=== PATIENT | male | born 1990 | race Caucasian/White ===

== ENCOUNTER 2016-11-20 17:33 | Emergency (ER) | payer MEDICAID, OTHER ==
[~2016-11-20] VITALS: Ht 185.4 cm; Wt 91.4 kg
[2016-11-20] MEDS ORDERED: ACETAMINOPHEN 500 MG TABLET ONE (17:59)
[2016-11-20] MEDS ORDERED: LIDOCAINE 1%, 20ML ONE (17:59)
[2016-11-20] MEDS ORDERED: SODIUM CHLORIDE 0.9% 1,000ML IVBOLUS ONE (18:00)
[2016-11-20] MEDS ORDERED: SODIUM CHLORIDE FLUSH 10ML SYR IVF ONE (18:00)
[2016-11-20] MEDS ORDERED: LIDOCAINE 1%, 20ML SQ ONE (18:00)
[2016-11-20] MEDS ORDERED: ACETAMINOPHEN 500 MG TABLET PO ONE (18:00)
[2016-11-20] MEDS ORDERED: MORPHINE SULFATE 4 MG/ML, 1ML ONE (18:20)
[2016-11-20] MEDS ORDERED: ONDANSETRON 2MG/ML, 2ML ONE (18:20)
[2016-11-20] MEDS ORDERED: ONDANSETRON 2MG/ML, 2ML IVPush ONE (18:30)
[2016-11-20] MEDS ORDERED: MORPHINE SULFATE 4 MG/ML, 1ML IVPush PRN (18:30)
[2016-11-20 18:34] LABS: BLOOD UREA NITROGEN 12 mg/dL (7-18)
[2016-11-20 19:41] LABS: RAPID INFLUENZA A Negative (Negative); RAPID INFLUENZA B Negative (Negative)
[2016-11-20 22:14] VITALS: BP 109/54
== END 2016-11-20 22:16 | disposition home or self-care (01) ==
LOC: ED 19:35
DX: L02.413 Cutaneous abscess of right upper limb (principal); R50.9 Fever, unspecified
CPT/HCPCS: 10060; 36415; 71010; 76882; 80048; 81003; 82040; 83605; 84145; 85025; 87040; 87400; 93005; 96361; 96374; 96375; 99285; J2405; J7030

== ENCOUNTER 2016-11-23 04:40 | Emergency (ER) | payer MEDICAID ==
[~2016-11-23] VITALS: Ht 185.4 cm; Wt 88.6 kg
[2016-11-23] MEDS ORDERED: SODIUM CHLORIDE FLUSH 10ML SYR IVF ONE (05:30)
[2016-11-23] MEDS ORDERED: ONDANSETRON 2MG/ML, 2ML IVPush ONE (05:30)
[2016-11-23] MEDS ORDERED: SODIUM CHLORIDE 0.9% 1,000ML IVBOLUS ONE (05:30)
[2016-11-23] MEDS ORDERED: SULF1TAB3 PO (05:58)
[2016-11-23] MEDS ORDERED: ONDANSETRON 2MG/ML, 2ML ONE (06:01)
[2016-11-23] MEDS ORDERED: MORPHINE SULFATE 4 MG/ML, 1ML ONE ×2 (06:01→08:00)
[2016-11-23 06:17] LABS: ASPARTATE AMINO TRANSFERASE 231 U/L (15-37); BLOOD UREA NITROGEN 29 mg/dL (7-18)
[2016-11-23] MEDS: MORPHINE SULFATE 4 MG/ML, 1ML IVPush PRN ×2 (06:20→08:04)
[2016-11-23] MEDS ORDERED: SODIUM CHLORIDE 0.9%, 500ML IVBOLUS ONE (06:30)
[2016-11-23] MEDS ORDERED: HYDROmorphone 1 MG/ML, 1ML IV ONE (08:00)
[2016-11-23] MEDS ORDERED: HYDROmorphone 1 MG/ML, 1ML ONE (08:30)
[2016-11-23] MEDS ORDERED: OMNIPAQUE 350 MG/ML, 100ML BOTTLE ONE (08:31)
[2016-11-23 11:20] VITALS: BP 124/72
== END 2016-11-23 11:23 | disposition home or self-care (01) ==
LOC: ED 06:31
DX: R10.13 Epigastric pain (principal); R11.2 Nausea with vomiting, unspecified; L02.413 Cutaneous abscess of right upper limb; F17.200 Nicotine dependence, unspecified, uncomplicated
CPT/HCPCS: 36415; 74177; 76700; 80053; 80307; 81001; 83605; 83690; 85025; 87086; 96361; 96374; 96375; 96376; 99285; J1170; J2405; J7030; J7040; Q9967

== ENCOUNTER 2016-11-23 23:17 | Emergency (ER) | payer MEDICAID ==
[~2016-11-23] VITALS: Ht 185.4 cm; Wt 88.2 kg
[~2016-11-23 23:17] MED LIST: SULF1TAB3 PO
[2016-11-23] MEDS ORDERED: METOCLOPRAMIDE 5 MG/ML, 2ML ONE (23:55)
[2016-11-23] MEDS ORDERED: PROMETHAZINE 25 MG/ML, 1ML ONE (23:57)
[2016-11-24] MEDS ORDERED: PROMETHAZINE 25 MG/ML, 1ML IM ONE
[2016-11-24] MEDS ORDERED: SODIUM CHLORIDE FLUSH 10ML SYR IVF ONE
[2016-11-24] MEDS ORDERED: SODIUM CHLORIDE 0.9% 1,000ML IVBOLUS ONE
[2016-11-24 00:47] LABS: ASPARTATE AMINO TRANSFERASE 375 U/L (15-37); BLOOD UREA NITROGEN 16 mg/dL (7-18)
[2016-11-24 03:34] LABS: HIV 1&2 ANTIBODY SCREEN Nonreactive (Nonreactive); HIV-1 p24 ANTIGEN Nonreactive (Nonreactive)
[2016-11-24] MEDS ORDERED: KETOROLAC 30 MG/1 ML ONE (03:57)
[2016-11-24] MEDS ORDERED: KETOROLAC 30 MG/1 ML IVPush ONE (04:00)
[2016-11-24 04:26] VITALS: BP 110/72
[2016-11-24 09:17] LABS: HEP B SURF. AB 80.4 mIU/mL (0.0-10.0)
[2016-11-24 09:56] LABS: HEPATITIS C VIRUS ANTIBODY Nonreactive (Nonreactive)
== END 2016-11-24 04:56 | disposition home or self-care (01) ==
LOC: ED 23:57
DX: R10.84 Generalized abdominal pain (principal); R11.2 Nausea with vomiting, unspecified; R21 Rash and other nonspecific skin eruption
CPT/HCPCS: 36415; 80053; 81001; 83690; 85025; 86308; 86703; 86705; 86706; 86803; 87086; 87340; 87899; 96361; 96372; 96374; 99284; J1885; J2550; J7030; G0435

== ENCOUNTER 2017-03-24 20:07 | Emergency (ER) | payer MEDICAID ==
[~2017-03-24] VITALS: Ht 185.4 cm; Wt 88.0 kg
[~2017-03-24 20:07] MED LIST changes: +SULF-169 PO; -SULF1TAB3 PO
[2017-03-24] MEDS ORDERED: ACETAMINOPHEN 500 MG TABLET ONE (20:59)
[2017-03-24] MEDS ORDERED: SODIUM CHLORIDE 0.9% 1,000ML IVBOLUS ONE (21:00)
[2017-03-24] MEDS ORDERED: ACETAMINOPHEN 325 MG TABLET PO ONE (21:00)
[2017-03-24] MEDS ORDERED: SODIUM CHLORIDE FLUSH 10ML SYR IVF ONE (21:00)
[2017-03-24 21:04] LABS: HEMATOCRIT 39.4 % (39.2-51.8); HEMOGLOBIN 13.4 g/dL (13.7-18.0); WHITE BLOOD COUNT 11.7 x10^3/uL (3.4-10)
[2017-03-24 21:15] LABS: BLOOD UREA NITROGEN 8 mg/dL (7-18)
[2017-03-24 21:19] LABS: IS PT STATUS REG ER OR PRE ER? YES
[2017-03-24 21:26] LABS: RAPID INFLUENZA A Negative (Negative); RAPID INFLUENZA B Negative (Negative)
[2017-03-24 22:45] VITALS: BP 125/72
== END 2017-03-24 22:51 | disposition home or self-care (01) ==
LOC: ED 22:24
DX: R59.1 Generalized enlarged lymph nodes (principal); B34.9 Viral infection, unspecified
CPT/HCPCS: 36415; 80048; 82040; 84484; 85025; 87400; 93005; 96360; 96361; 99285; J7030

== ENCOUNTER 2017-05-28 16:10 | Emergency (ER) | payer MEDICAID | END 2017-05-28 18:33 | disposition left against medical advice (07) | LOC: ED 18:27 | DX: Z53.21 Procedure and treatment not carried out due to patient leaving prior to being seen by health care provider (principal) ==